=== PATIENT | female | born 1955 ===

== ENCOUNTER 2021-03-20 02:54 | Emergency (ER) | payer OTHER ==
[2021-03-20] MEDS ORDERED: Acetaminophen/HYDROcodone 325-5 MG Tab PO ONE ×2 (02:55→05:42)
[2021-03-20] MEDS ORDERED: Ibuprofen 800 MG Tab PO ONE (03:14)
--- NOTE | 2021-03-20 05:45 | EDM.PDOC ---
ED HPI GENERAL MEDICAL PROBLEM - General Chief Complaint: Upper Extremity Injury/Pain Stated Complaint: FELL Time Seen by Provider: 03/20/21 05:40 Source of Information: Reports: Patient History Limitations: Reports: No Limitations - History of Present Illness INITIAL COMMENTS - FREE TEXT/NARRATIVE: Patient lost her balance while walking up her steps outside, she fell backwards onto the steps. Patient did have a brief loss of consciousness. Complains of headache, right sided neck pain, right lower back pain, right shoulder pain, and right elbow pain. Also complains of tingling to the right fingertips. Denies dizziness, chest pain, or SOB. She is right hand dominant. Onset Date: 03/19/21 Onset Time: 23:00 Severity: Moderate R shoulder, neck, R elbow, lower back Pain Score (Numeric/FACES): 10 - Related Data Allergies Allergy/AdvReac Type Severity Reaction Status Date / Time nitrofurantoin Allergy Fainting Verified 03/20/21 03:11 [From Macrobid] pregabalin [From Lyrica] Allergy Confusion Verified 03/20/21 03:11 Home Meds: Home Meds Cyanocobalamin (Vitamin B-12) [Vitamin B-12] 3,000 mcg PO Q14D 03/20/21 [History] Ferrous Sulfate [Iron] 325 mg PO DAILY 03/20/21 [History] Hydrocodone/Acetaminophen [Hydrocodon-Acetaminophen 5-325] 1 - 2 each PO Q6H PRN #10 tablet 03/20/21 [Rx] Loratadine [Claritin] 10 mg PO BEDTIME PRN 03/20/21 [History] Past Medical History Cardiovascular History: Reports: Hypertension Gastrointestinal History: Reports: GERD, PUD [employer] 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: Musculoskeletal History: Reports: Arthritis, Back Pain, Chronic, Fracture, Neck Pain, Chronic Other Musculoskeletal History: hx fx R arm Neurological History: Reports: Migraines Psychiatric History: Reports: Anxiety, Depression Endocrine/Metabolic History: Reports: Hypothyroidism, Obesity/BMI 30+ Hematologic History: Reports: Anemia, Blood Transfusion(s), Iron Deficiency - Infectious Disease History Infectious Disease History: Reports: Measles, Mumps - Past Surgical History GI Surgical History: Reports: Bariatric Procedure, Cholecystectomy, Colonoscopy, EGD Musculoskeletal Surgical History: Reports: Knee Replacement Other Musculoskeletal Surgeries/Procedures:: L knee replacement Social & Family History - Family History Family Medical History: No Pertinent Family History - Tobacco Use Tobacco Use Status *Q: Current Every Day Tobacco User Years of Tobacco use: 50 Packs/Tins Daily: 1 - Caffeine Use Caffeine Use: Reports: Coffee, Energy Drinks, Soda - Alcohol Use Days Per Week of Alcohol Use: 2 Number of Drinks Per Day: 3 Total Drinks Per Week: 6 - Recreational Drug Use Recreational Drug Use: No Review of Systems - Review of Systems Review Of Systems: Comprehensive ROS is negative, except as noted in HPI. ED EXAM, GENERAL - Physical Exam Exam: See Below Exam Limited By: No Limitations General Appearance: Alert, WD/WN, No Apparent Distress Eye Exam: Bilateral Eye: EOMI, PERRL Nose: Normal Inspection Throat/Mouth: No Airway Compromise Head: Atraumatic, Normocephalic Neck: Tender Lateral, Other (Tenderness overlying right cervical paraspinous and trapezius muscles). No: Tender Midline Respiratory/Chest: No Respiratory Distress, Lungs Clear, Normal Breath Sounds Cardiovascular: Regular Rate, Rhythm, No Murmur Peripheral Pulses: 3+: Radial (R) GI/Abdominal: Soft, Non-Tender, No Distention Back Exam: Paraspinal Tenderness (Lumbar). No: Vertebral Tenderness Extremities: Normal Capillary Refill, Other (right shoulder tenderness, right elbow tenderness, no deformities) Neurological: Alert, Normal Cognition, No Motor/Sensory Deficits Psychiatric: Normal Affect, Normal Mood Skin Exam: Warm, Dry, Intact Course - Vital Signs Last Recorded V/S: Last Vital Signs Temp 36.3 C 03/20/21 02:55 Pulse 87 03/20/21 02:55 Resp 20 03/20/21 02:55 BP 124/78 03/20/21 02:55 Pulse Ox 100 03/20/21 02:55 - Orders/Labs/Meds Orders: Active Orders 24 hr Category Date Time Status Cervical Spine wo Cont [CT] Stat Exams 03/20/21 03:15 Taken Elbow 2V Rt [CR] Stat Exams 03/20/21 03:45 Taken Head wo Cont [CT] Stat Exams 03/20/21 03:42 Taken Lumbar Spine wo Cont [CT] Stat Exams 03/20/21 03:57 Taken Shoulder Comp Rt [CR] Stat Exams 03/20/21 03:14 Taken Meds: Medications Discontinued Medications Generic Name Dose Route Start Last Admin Trade Name Freq PRN Reason Stop Dose Admin Ibuprofen 800 mg 03/20/21 03:14 03/20/21 03:20 Ibuprofen 800 Mg Tab PO 03/20/21 03:15 800 mg ONETIME ONE Administration - Radiology Interpretation Free Text/Narrative:: Right Shoulder Xray: Humeral head fracture, no dislocation. (ED provider interpretation) Right Elbow Xray: No fracture or dislocation. (ED provider interpretation) CT Head s/ contrast: IMPRESSION: Normal noncontrast CT of the head for the patient`s age. No sign of closed head injury. Dictated by Wilmer Elder MD @ 03/20/2021 5:08:[address] C-spine s/contrast: IMPRESSION: No sign of acute osseous injury to the cervical spine. Grade 1 anterior subluxation of C3 on C4 and of C4 on C5 which is probably degenerative. Severe C5-6 and moderate C6-7 disc degenerative disease as described above. Dictated by Wilmer Elder MD @ 03/20/2021 5:13:[address] L-spine s/contrast: IMPRESSION: No sign of acute osseous injury. Moderate spinal stenosis at L3-4. Mild spinal stenosis at L2-3. Mild compression of the nerve roots in the neural foramina on the right at L2-3 and at L3-4. Lateral disc bulging into the neural foramina bilaterally at L4-5, coming into contact with the exiting L4 nerve roots. Dictated by Wilmer Elder MD @ 03/20/2021 5:22:53 AM - Re-Assessments/Exams Free Text/Narrative Re-Assessment/Exam: 03/20/21 05:52 Placed in arm sling Departure - Departure Time of Disposition: 05:52 Disposition: Home, Self-Care 01 Condition: Good Clinical Impression: Fracture of humeral head, right, closed Qualifiers: Encounter type: initial encounter Qualified Code(s): S42.291A - Other displaced fracture of upper end of right humerus, initial encounter for closed fracture Minor head injury Qualifiers: Encounter type: initial encounter Qualified Code(s): S09.90XA - Unspecified injury of head, initial encounter Neck muscle strain Qualifiers: Encounter type: initial encounter Qualified Code(s): S16.1XXA - Strain of muscle, fascia and tendon at neck level, initial encounter Contusion of elbow, right Qualifiers: Encounter type: initial encounter Qualified Code(s): S50.01XA - Contusion of right elbow, initial encounter Contusion of lower back Qualifiers: Encounter type: initial encounter Qualified Code(s): S30.0XXA - Contusion of lower back and pelvis, initial encounter - Discharge Information *PRESCRIPTION DRUG MONITORING PROGRAM REVIEWED*: Yes *COPY OF PRESCRIPTION DRUG MONITORING REPORT IN PATIENT NED: No Prescriptions: Hydrocodone/Acetaminophen [Hydrocodon-Acetaminophen 5-325] 1 - 2 each PO Q6H PRN #10 tablet PRN Reason: Pain Instructions: Head Injury, Adult, [id number], Humerus Fracture Treated With Immobilization, [id number], How To Use a Sling, [id number], Muscle Strain, [id number] Referrals: Immanuel Laureano PA-C [Ordering Only Provider] - 3 Days Branden Jha PA-C [Ordering Only Provider] - 3 Days Additional Instructions: Fill the prescription for [place] and take as directed. You may also take Ibuprofen as needed to control pain. Ice the areas affected. Follow up with either [facility] or [facility] in 3-4 days. Return to the ER as needed. Sepsis Event Note (ED) - Evaluation Sepsis Screening Result: No Definite Risk - Focused Exam Vital Signs: Vital Signs Temp Pulse Resp BP Pulse Ox 03/20/21 02:55 36.3 C 87 20 124/78 100 - My Orders Last 24 Hours: My Active Orders 03/20/21 03:14 Shoulder Comp Rt [CR] Stat 03/20/21 03:15 Cervical Spine wo Cont [CT] Stat 03/20/21 03:42 Head wo Cont [CT] Stat 03/20/21 03:45 Elbow 2V Rt [CR] Stat 03/20/21 03:57 Lumbar Spine wo Cont [CT] Stat - Assessment/Plan Last 24 Hours: My Active Orders 03/20/21 03:14 Shoulder Comp Rt [CR] Stat 03/20/21 03:15 Cervical Spine wo Cont [CT] Stat 03/20/21 03:42 Head wo Cont [CT] Stat 03/20/21 03:45 Elbow 2V Rt [CR] Stat 03/20/21 03:57 Lumbar Spine wo Cont [CT] Stat
--- NOTE | 2021-03-21 10:37 | CR ---
INDICATION: Fall, pain. RIGHT ELBOW, TWO VIEWS: Frontal and lateral views of the right elbow were obtained 03/20/21 and revealed mild hypertrophic degenerative changes - osteoarthritis at the medial elbow joint compartment. A tiny spur is noted off the posterior distal aspect of the humerus. A definite acute fracture or dislocation was not identified. Only slightly oblique and lateral views were obtained at this time. IMPRESSION: 1. No definite acute fracture or dislocation - followup study in 10 to 14 days may be helpful if occult fracture site is suspected clinically. 2. Mild osteoarthritis. MTDD
--- NOTE | 2021-03-21 10:41 | CR ---
INDICATION: Fall/pain. RIGHT SHOULDER: Three views of the right shoulder revealed a comminuted fracture of the proximal radial metaphysis extending through the surgical and anatomic neck areas. There is slight offset at the fracture site with overall adequate position and alignment of the fracture fragments suggested. Adjacent ribs appear to be grossly intact. There is an appearance of heavy markings in the lungs which is likely on the basis of poor inspiration. IMPRESSION: Comminuted fracture of the proximal radial metaphysis - proximal shaft area. MTDD
== END 2021-03-20 06:26 | disposition home or self-care (01) ==
LOC: FB.ED 02:54
DX: S42.291A Other displaced fracture of upper end of right humerus, initial encounter for closed fracture (principal); S16.1XXA Strain of muscle, fascia and tendon at neck level, initial encounter; S50.01XA Contusion of right elbow, initial encounter; S30.0XXA Contusion of lower back and pelvis, initial encounter; S09.90XA Unspecified injury of head, initial encounter; I10 Essential (primary) hypertension; Z88.1 Allergy status to other antibiotic agents; Z72.0 Tobacco use; W10.9XXA Fall (on) (from) unspecified stairs and steps, initial encounter
CPT/HCPCS: 70450; 72125; 72131; 73030-RT; 73070-RT; 99284-25; A9270-GY